=== PATIENT | female | born 1995 | race Caucasian/White ===

== ENCOUNTER 2020-10-21 10:55 | Emergency (ER) | payer OTHER ==
[2020-10-21 11:06] VITALS: BP 115/70; PULSE 129
[2020-10-21] MEDS ORDERED: Sodium Chloride 0.9% 1,000 ML IV ONE ×2 (11:21→13:01)
[2020-10-21] MEDS ORDERED: Sodium Chloride 0.9% 10 ML Syringe FLUSH PRN (11:21)
[2020-10-21] MEDS ORDERED: Ondansetron 4 MG/2 ML SDV IVPUSH ONE (11:21)
--- NOTE | 2020-10-21 11:33 | EDM.PDOC ---
ED HPI GENERAL MEDICAL PROBLEM - General Chief Complaint: Gastrointestinal Problem Stated Complaint: DIABETIC COMPLAINT Time Seen by Provider: 10/21/20 11:18 Source of Information: Reports: Patient, RN Notes Reviewed History Limitations: Reports: No Limitations - History of Present Illness INITIAL COMMENTS - FREE TEXT/NARRATIVE: Patient is a 25-year-old female who presents to the ER for the evaluation of her nausea and vomiting. Patient is a type I diabetic. She is also 7 weeks . She states that she woke up this morning around 3 or 4 AM, and developed copious vomiting, she states she cannot even keep fluids down. Patient notes that her blood sugars have been running in the 200s recently, and her blood sugar at the time of triage was 254. She states that ketones this morning comes on ointment with Dr. Farmer for the , and everything was well to that respect. She is a G2, P1, primary care provider is Dr. Morel. Further denies any sort of urinary discomfort, frequency or urgency. She notes she is not been around anyone else that is been sick lately, and she states that everyone in her household is feeling well. - Related Data Allergies Allergy/AdvReac Type Severity Reaction Status Date / Time No Known Allergies Allergy Verified 10/21/20 11:06 Home Meds: Home Meds Subcutaneous Insulin Pump [Insulin Pump] 0 unit SQ ASDIRECTED 08/03/14 [History] Pnv No.95/Ferrous Fum/Folic AC [ Caplet] 1 tab PO DAILY 01/21/19 [History] Past Medical History HEENT History: Reports: Allergic Rhinitis, Impaired Vision, Otitis Media Other HEENT History: wears eyeglasses. Genitourinary History: Reports: UTI, Recurrent HEAD GROWER History: Reports: : 2 Para: 1 Endocrine/Metabolic History: Reports: Diabetes, Type I, Other (See Below) Other Endocrine/Metabolic History: states was Dx'd at age 12. Insulin Pump Model and Cardiopulmonary Supervisor: dexcom Type of Insulin Used in Pump: omnipod Who Manages Your Pump: Patient (Self) - Past Surgical History HEENT Surgical History: Reports: Myringotomy w Tube(s) Social & Family History - Tobacco Use Tobacco Use Status *Q: Never Tobacco User Second Hand Smoke Exposure: No - Caffeine Use Caffeine Use: Reports: None - Recreational Drug Use Recreational Drug Use: No ED ROS GENERAL - Review of Systems Review Of Systems: Comprehensive ROS is negative, except as noted in HPI. ED EXAM, GI/ABD - Physical Exam Exam: See Below Exam Limited By: No Limitations General Appearance: Alert, WD/WN, No Apparent Distress Respiratory/Chest: No Respiratory Distress, Lungs Clear, Normal Breath Sounds, No Accessory Muscle Use, Chest Non-Tender Cardiovascular: Normal Peripheral Pulses, Regular Rate, Rhythm, No Edema GI/Abdominal Exam: Normal Bowel Sounds, Soft, Non-Tender, No Distention, No Mass Extremities: Normal Inspection, Normal Capillary Refill Neurological: Alert, Oriented, Normal Cognition, No Motor/Sensory Deficits Psychiatric: Normal Affect, Normal Mood Skin Exam: Warm, Dry, Intact, Normal Color, No Rash Course - Vital Signs Last Recorded V/S: Last Vital Signs Temp 99.3 F 10/21/20 11:03 Pulse 129 H 10/21/20 11:03 Resp 16 10/21/20 11:03 BP 115/70 10/21/20 11:03 Pulse Ox 97 10/21/20 11:03 - Orders/Labs/Meds Orders: Active Orders 24 hr Category Date Time Status Communication Order [RC] ASDIRECTED Care 10/21/20 12:19 Ordered Peripheral IV Care [RC] . DIRECTED Care 10/21/20 11:21 Ordered Sodium Chloride 0.9% [Saline Flush] Med 10/21/20 11:21 Active 10 ml FLUSH ASDIRECTED PRN Peripheral IV Insertion Adult [OM.PC] Routine Oth 10/21/20 11:21 Ordered Medication Orders Sodium Chloride (Sodium Chloride 0.9% 10 Ml Syringe) 10 ml FLUSH ASDIRECTED PRN PRN Reason: Keep Vein Open Last Admin: 10/21/20 11:40 Dose: 10 ml Documented by: JESICA Labs: Laboratory Tests 10/21/20 10/21/20 10/21/20 Range/Units 11:08 11:30 12:01 WBC 17.18 H (3.98-10.04) K/mm3 RBC 5.20 (3.98-5.22) M/mm3 Hgb 15.3 D (11.2-15.7) gm/dl Hct 44.5 (34.1-44.9) % MCV 85.6 (79.4-94.8) fl MCH 29.4 (25.6-32.2) pg MCHC 34.4 (32.2-35.5) g/dl RDW Std Deviation 39.0 (36.4-46.3) fL Plt Count 407 H D (182-369) K/mm3 MPV 8.5 L (9.4-12.3) fl Neut % (Auto) 93.9 H (34.0-71.1) % Lymph % (Auto) 2.7 L (19.3-51.7) % [place]ountain % (Auto) 2.8 L (4.7-12.5) % Eos % (Auto) 0 L (0.7-5.8) Baso % (Auto) 0.2 (0.1-1.2) % Neut # (Auto) 16.13 H (1.56-6.13) K/mm3 Lymph # (Auto) 0.47 L (1.18-3.74) K/mm3 Fountain # (Auto) 0.48 H (0.24-0.36) K/mm3 Eos # (Auto) 0.00 L (0.04-0.36) K/mm3 Baso # (Auto) 0.03 (0.01-0.08) K/mm3 Manual Slide Review Abnormal smear Sodium 138 (136-145) mEq/L Potassium 4.1 (3.5-5.1) mEq/L Chloride 102 (98-107) mEq/L Carbon Dioxide 23 (21-32) mEq/L Anion Gap 17.1 H (5-15) BUN 18 (7-18) mg/dL Creatinine 0.8 (0.55-1.02) mg/dL Est Cr Clr Drug Dosing 95.89 mL/min Estimated GFR (MDRD) > 60 (>60) mL/min BUN/Creatinine Ratio 22.5 H (14-18) Glucose 287 H (74-106) mg/dL POC Glucose 254 H (70-105) mg/dL Serum Osmolality 296 (280-300) mosm/kg Calcium 8.3 L (8.5-10.1) mg/dL Total Bilirubin 1.8 H (0.2-1.0) mg/dL AST 32 (15-37) U/L ALT 44 (14-59) U/L Alkaline Phosphatase 66 (46-116) U/L Total Protein 7.1 (6.4-8.2) g/dl Albumin 3.7 (3.4-5.0) g/dl Globulin 3.4 gm/dL Albumin/Globulin Ratio 1.1 (1-2) Urine Color (Yellow) Urine Appearance (Clear) Urine pH (5.0-8.0) Ur Specific [place] (1.005-1.030) Urine Protein (Negative) Urine Glucose (UA) (Negative) Urine Ketones (Negative) Urine Occult Blood (Negative) Urine Nitrite (Negative) Urine Bilirubin (Negative) Urine Urobilinogen (0.2-1.0) Ur Leukocyte Esterase (Negative) Urine RBC (0-5) /hpf Urine WBC (0-5) /hpf Ur Squamous Epith Cells (0-5) /hpf Urine Bacteria (FEW) /hpf Urine Mucus (FEW) /hpf Ketones (0.0-0.3) mM 10/21/20 10/21/20 Range/Units 12:01 13:57 WBC (3.98-10.04) K/mm3 RBC (3.98-5.22) M/mm3 Hgb (11.2-15.7) gm/dl Hct (34.1-44.9) % MCV (79.4-94.8) fl MCH (25.6-32.2) pg MCHC (32.2-35.5) g/dl RDW Std Deviation (36.4-46.3) fL Plt Count (182-369) K/mm3 MPV (9.4-12.3) fl Neut % (Auto) (34.0-71.1) % Lymph % (Auto) (19.3-51.7) % [place] % (Auto) (4.7-12.5) % Eos % (Auto) (0.7-5.8) Baso % (Auto) (0.1-1.2) % Neut # (Auto) (1.56-6.13) K/mm3 Lymph # (Auto) (1.18-3.74) K/mm3 Fountain # (Auto) (0.24-0.36) K/mm3 Eos # (Auto) (0.04-0.36) K/mm3 Baso # (Auto) (0.01-0.08) K/mm3 Manual Slide Review Sodium (136-145) mEq/L Potassium (3.5-5.1) mEq/L Chloride (98-107) mEq/L Carbon Dioxide (21-32) mEq/L Anion Gap (5-15) BUN (7-18) mg/dL Creatinine (0.55-1.02) mg/dL Est Cr Clr Drug Dosing mL/min Estimated GFR (MDRD) (>60) mL/min BUN/Creatinine Ratio (14-18) Glucose (74-106) mg/dL POC Glucose (70-105) mg/dL Serum Osmolality (280-300) mosm/kg Calcium (8.5-10.1) mg/dL Total Bilirubin (0.2-1.0) mg/dL AST (15-37) U/L ALT (14-59) U/L Alkaline Phosphatase (46-116) U/L Total Protein (6.4-8.2) g/dl Albumin (3.4-5.0) g/dl Globulin gm/dL Albumin/Globulin Ratio (1-2) Urine Color Yellow (Yellow) Urine Appearance Clear (Clear) Urine pH 5.5 (5.0-8.0) Ur Specific [place] 1.025 (1.005-1.030) Urine Protein Negative (Negative) Urine Glucose (UA) 2+ H (Negative) Urine Ketones 4+ H (Negative) Urine Occult Blood Trace-intact H (Negative) Urine Nitrite Negative (Negative) Urine Bilirubin Negative (Negative) Urine Urobilinogen 0.2 (0.2-1.0) Ur Leukocyte Esterase Negative (Negative) Urine RBC 5-10 H (0-5) /hpf Urine WBC 0-5 (0-5) /hpf Ur Squamous Epith Cells 0-5 (0-5) /hpf Urine Bacteria Few (FEW) /hpf Urine Mucus Few (FEW) /hpf Ketones 1.08 (0.0-0.3) mM Meds: Medications Generic Name Dose Route Start Last Admin Trade Name Freq PRN Reason Stop Dose Admin Sodium Chloride 10 ml 10/21/20 11:21 10/21/20 11:40 Sodium Chloride 0.9% 10 Ml Syringe FLUSH 10 ml ASDIRECTED PRN Administration Keep Vein Open Discontinued Medications Generic Name Dose Route Start Last Admin Trade Name Freq PRN Reason Stop Dose Admin Sodium Chloride 1,000 mls @ 999 mls/hr 10/21/20 11:21 10/21/20 11:40 Normal Saline IV 10/21/20 12:21 999 mls/hr ONETIME ONE Administration Sodium Chloride 1,000 mls @ 999 mls/hr 10/21/20 13:01 10/21/20 13:36 Normal Saline IV 10/21/20 14:01 999 mls/hr ONETIME ONE Administration Ondansetron HCl 4 mg 10/21/20 11:21 10/21/20 11:38 Ondansetron 4 Mg/2 Ml Sdv IVPUSH 10/21/20 11:22 4 mg ONETIME ONE Administration - Re-Assessments/Exams Free Text/Narrative Re-Assessment/Exam: 10/21/20 11:32 Patient presents to the ER for her nausea and vomiting in . We will go ahead and give her some IV fluids, some IV Zofran for initial management, take some baseline labs for further investigation. 10/21/20 12:18 Patient CBC has resulted, and her white count is elevated at 17.1, with 93% neutrophils, and over 10% bands noted on the auto differential. Have ordered a urinalysis for ongoing management. Metabolic panel and other labs are still pending. 10/21/20 13:17 Metabolic panel has come back, and is essentially unremarkable. Patient's blood sugar on the metabolic panel was 280. Her ketone level was 1.08, which is elevated by our lab standards, but in no means put her into ketoacidosis. Patient's blood sugar on her continuous glucose monitor was 271 when I went in to reassess her. I would feel more comfortable if she got 1 more bag of fluids before going home, and she seems to be okay with this. She notes that she was able to keep some fluids and Jell-O down without difficulty. This is good news. She states she was going to call her school vocational educator, tomorrow due to her blood sugars being steadily in the 200s for the last week. Patient again denies any sort of sick-like symptoms. 10/21/20 14:29 Urine has come back, and demonstrates no focal abnormalities. Patient has received her second bag of fluids, she reports still feeling well, she would like to be discharged home. At this point in time I cannot see any reason why she can go home with general recommendations and follow-up with her care providers tomorrow return to the ER if her symptoms worsen. Patient verbalized understanding. Departure - Departure Time of Disposition: 13:59 Disposition: Home, Self-Care 01 Condition: Good Clinical Impression: Nausea and vomiting during , Blood glucose elevated - Discharge Information *PRESCRIPTION DRUG MONITORING PROGRAM REVIEWED*: No *COPY OF PRESCRIPTION DRUG MONITORING REPORT IN PATIENT JOELLEN: No Instructions: Nausea and Vomiting, Adult, [id number] Referrals: Sammi Singleton MD [Primary Care Provider] - Forms: ED Department Discharge Additional Instructions: You have been evaluated in the ED for nausea/vomiting. You did receive some IV fluids in the ER along with IV nausea medications, this seemed to help relieve most your symptoms. Your blood sugars were down to an acceptable level on your continuous glucose monitor when you are discharged from this hospital. Over the next 24-48 hours please try to limit diet to clear liquids and advance as tolerated to a bland diet to alleviate symptoms of nausea/vomiting. Please use the Zofran every 8 hours as needed for nausea. You indicated you already had a prescription for this from Dr. Farmer. I would recommend that you take 1 dose in the morning, before you start to get sick, to make sure that you can keep yourself hydrated due to . Recommend you follow-up with your school vocational educator, regarding your elevated blood glucose levels throughout the last week. They might need to rethink your diabetic regimen for . Please return to the ED if your symptoms should change or worsen. Sepsis Event Note (ED) - Evaluation Sepsis Screening Result: No Definite Risk - Focused Exam Vital Signs: Vital Signs Temp Pulse Resp BP Pulse Ox 10/21/20 11:03 99.3 F 129 H 16 115/70 97 - My Orders Last 24 Hours: My Active Orders 10/21/20 11:21 Peripheral IV Care [RC] . DIRECTED Sodium Chloride 0.9% [Saline Flush] 10 ml FLUSH ASDIRECTED PRN Peripheral IV Insertion Adult [OM.PC] Routine 10/21/20 12:19 Communication Order [RC] ASDIRECTED - Assessment/Plan Last 24 Hours: My Active Orders 10/21/20 11:21 Peripheral IV Care [RC] . DIRECTED Sodium Chloride 0.9% [Saline Flush] 10 ml FLUSH ASDIRECTED PRN Peripheral IV Insertion Adult [OM.PC] Routine 10/21/20 12:19 Communication Order [RC] ASDIRECTED
== END 2020-10-21 14:56 | disposition home or self-care (01) ==
LOC: JD.ED 10:55
DX: O24.911 Unspecified diabetes mellitus in pregnancy, first trimester (principal); E10.65 Type 1 diabetes mellitus with hyperglycemia; Z3A.01 Less than 8 weeks gestation of pregnancy
CPT/HCPCS: 36415; 80053; 81001; 82009; 82962; 83930; 85025; 96361; 96374; 99284; J2405; J7030

== ENCOUNTER 2023-02-02 08:37 | Emergency (ER) | payer OTHER ==
[2023-02-02] MEDS ORDERED: Sodium Chloride 0.9% 10 ML Syringe FLUSH PRN (09:09)
[2023-02-02] MEDS ORDERED: Sodium Chloride 0.9% 1,000 ML IV SCH (09:15)
[2023-02-02 09:36] LABS: BASOPHILS ABSOLUTE AUTO 0.05 K/mm3 (0.01-0.08); BASOPHILS PERCENT AUTO 0.6 % (0.1-1.2); EOSINOPHILS ABSOLUTE AUTO 0.12 K/mm3 (0.04-0.36); EOSINOPHILS PERCENT AUTO 1.3 (0.7-5.8); HEMOGLOBIN 14.9 gm/dl (11.2-15.7); IMMATURE GRAN ABSOLUTE AUTO 0.03 K/mm3 (0.00-0.10); IMMATURE GRAN PERCENT AUTO 0.3 % (<=1.0); LYMPHOCYTES ABSOLUTE AUTO 1.45 K/mm3 (1.18-3.74); MEAN CORPUSCULAR HEMOGLOBIN 29.4 pg (25.6-32.2); MEAN CORPUSCULAR HGB CONC 34.7 g/dl (32.2-35.5); MEAN CORPUSCULAR VOLUME 84.8 fl (79.4-94.8); MEAN PLATELET VOLUME 8.7 fl (9.4-12.3); MONOCYTES ABSOLUTE AUTO 0.65 K/mm3 (0.24-0.36); MONOCYTES PERCENT AUTO 7.2 % (4.7-12.5); NEUTROPHILS ABSOLUTE AUTO 6.79 K/mm3 (1.56-6.13); NEUTROPHILS PERCENT AUTO 74.6 % (34.0-71.1); PLATELET COUNT,PLT 421 K/mm3 (182-369); RED BLOOD CELL COUNT 5.07 M/mm3 (3.98-5.22); WHITE BLOOD CELL COUNT,WBC 9.09 K/mm3 (3.98-10.04)
[2023-02-02 09:43] LABS: APPEARANCE,URINE SLT CLOUDY (Clear); BILIRUBIN,URINE NEGATIVE (Negative); COLOR,URINE YELLOW (Yellow); GLUCOSE,URINE 1+ (Negative); KETONES,URINE NEGATIVE (Negative); LEUKOCYTE ESTERASE,URINE 1+ (Negative); NITRITE,URINE NEGATIVE (Negative); OCCULT BLOOD,URINE NEGATIVE (Negative); PROTEIN,URINE NEGATIVE (Negative); UROBILINOGEN,URINE 0.2 (0.2-1.0)
[2023-02-02 09:56] LABS: ALBUMIN 3.9 g/dl (3.4-5.0); BILIRUBIN TOTAL 0.8 mg/dL (0.2-1.0); CALCIUM 9.2 mg/dL (8.5-10.1); CREATININE 0.8 mg/dL (0.55-1.02); EST CRCL DRUG DOSING (CG) 93.37 mL/min; PROTEIN TOTAL,TP 7.8 g/dl (6.4-8.2)
[2023-02-02 10:11] LABS: BACTERIA,URINE FEW /hpf (FEW); EPITHELIAL CELLS,URINE 0-5 /hpf (0-5); MUCUS,URINE RARE /hpf (FEW); RBC,URINE 0-5 /hpf (0-5)
[2023-02-02 11:11] LABS: CORONAVIRUS COVID-19 NAA NEGATIVE (NEGATIVE); INFLUENZA A NAA NEGATIVE (NEGATIVE); RESPIRATORY SYNCYTIAL VIR NAA NEGATIVE (NEGATIVE)
[2023-02-02 12:04] VITALS: BP 110/82; PULSE 89
== END 2023-02-02 11:43 | disposition home or self-care (01) ==
LOC: JD.ED 08:37
DX: J06.9 Acute upper respiratory infection, unspecified (principal); B97.89 Other viral agents as the cause of diseases classified elsewhere; E10.65 Type 1 diabetes mellitus with hyperglycemia; Z20.822 Contact with and (suspected) exposure to COVID-19
CPT/HCPCS: 0241U; 36415; 80053; 81001; 82009; 82800; 83930; 84703; 85025; 96360; 99284; J7030; 99283

== ENCOUNTER 2023-07-21 06:48 | Day surgery (SDC) | payer BC, OTHER ==
[~2023-07-21 06:48] MED LIST: Lactated Ringers 1,000 ML IV SCH; Sodium Chloride 0.9% 10 ML Syringe FLUSH PRN; Sodium Chloride 0.9% 10 ML Syringe FLUSH SCH
[2023-07-21] MEDS ORDERED: Bupivacaine 0.25% 10 ML SDV ONE (07:00)
[2023-07-21] MEDS ORDERED: EPINEPHrine 1 MG/ML SDV ONE (07:00)
[2023-07-21] MEDS ORDERED: Bupivacaine 0.5% 30 ML SDV ONE (07:00)
[2023-07-21 07:13] LABS: BASOPHILS ABSOLUTE AUTO 0.1 K/mm3 (0.0-0.2); BASOPHILS PERCENT AUTO 1.3 % (0.0-1.0); EOSINOPHILS ABSOLUTE AUTO 0.4 K/mm3 (0.0-0.4); EOSINOPHILS PERCENT AUTO 4.9 % (0.0-6.0); HEMATOCRIT 41.8 % (37.0-47.0); HEMOGLOBIN 14.3 gm/dl (12.0-16.0); IMMATURE GRAN ABSOLUTE AUTO 0.02 K/mm3 (0.00-0.05); IMMATURE GRAN PERCENT AUTO 0.3 % (0.0-0.4); LYMPHOCYTES PERCENT AUTO 27.6 % (24.0-44.0); MEAN CORPUSCULAR HEMOGLOBIN 29.4 pg (28.0-32.0); MEAN CORPUSCULAR HGB CONC 34.2 g/dl (32.0-36.0); MEAN CORPUSCULAR VOLUME 85.8 fl (83.0-99.0); MEAN PLATELET VOLUME 8.3 fl (9.4-12.3); MONOCYTES ABSOLUTE AUTO 0.6 K/mm3 (0.0-0.8); MONOCYTES PERCENT AUTO 7.8 % (0.0-8.0); NEUTROPHILS ABSOLUTE AUTO 4.2 K/mm3 (1.8-7.7); NEUTROPHILS PERCENT AUTO 58.1 % (41.0-71.0); PLATELET COUNT,PLT 369 K/mm3 (150-400); RED BLOOD CELL COUNT 4.87 M/mm3 (4.10-5.30); WHITE BLOOD CELL COUNT,WBC 7.15 K/mm3 (3.9-11.3)
[2023-07-21] MEDS ORDERED: Propofol 200 MG/20 ML SDV ONE ×2 (07:15→08:05)
[2023-07-21] MEDS ORDERED: Midazolam 1 MG/ML 2 ML SDV ONE (07:15)
[2023-07-21] MEDS ORDERED: fentaNYL 250 MCG/5 ML SDV ONE (07:15)
[2023-07-21] MEDS ORDERED: dexmedeTOMIDine HCl 200 MCG/2 ML SDV ONE (07:16)
[2023-07-21] MEDS ORDERED: Rocuronium 50 MG/5 ML Vial ONE (07:16)
[2023-07-21] MEDS ORDERED: Lidocaine 1% 5 ML VIAL ONE (07:16)
[2023-07-21] MEDS ORDERED: Dexamethasone 4 MG/ML 5 ML MDV ONE (07:16)
[2023-07-21] MEDS ORDERED: Ketorolac 30 MG/ML SDV ONE (07:16)
[2023-07-21] MEDS ORDERED: Ondansetron 4 MG/2 ML SDV ONE (07:16)
[2023-07-21] MEDS ORDERED: Phenylephrine 1% 10 MG/ML SDV ONE (07:16)
[2023-07-21 07:35] LABS: A/G RATIO 1.1 (1-2); ALBUMIN 3.8 g/dl (3.4-5.0); ANION GAP 12.8 (5-15); BILIRUBIN TOTAL 0.8 mg/dL (0.2-1.0); BUN/CREATININE RATIO 14.3 (14-18); CALCIUM 8.9 mg/dL (8.5-10.1); CREATININE 0.7 mg/dL (0.55-1.02); EST CRCL DRUG DOSING (CG) 106.7 mL/min; POTASSIUM,K 3.8 mEq/L (3.5-5.1); PROTEIN TOTAL,TP 7.4 g/dl (6.4-8.2)
[2023-07-21] MEDS ORDERED: Scopalamine 1mg/3day Transdermal Patch TOP ONE (07:35)
[2023-07-21] MEDS ORDERED: ceFAZolin 2 GM Vial ONE (07:46)
[2023-07-21] MEDS ORDERED: Neostigmine Methylsulfate 10 MG/10 ML MDV ONE (09:30)
[2023-07-21] MEDS ORDERED: Lactated Ringers 1,000 ML ONE (09:35)
[2023-07-21] MEDS ORDERED: fentaNYL 100 MCG/2 ML SDV IVPUSH PRN (10:31)
[2023-07-21] MEDS ORDERED: HYDROmorphone 0.5 MG/0.5 ML Syringe IVPUSH PRN (10:31)
[2023-07-21] MEDS ORDERED: Naloxone 0.4 MG/ML SDV IVPUSH PRN (10:31)
[2023-07-21] MEDS ORDERED: Acetaminophen/oxyCODONE 325-5 MG Tab PO PRN (10:36)
[2023-07-21 13:09] VITALS: BP 120/70; PULSE 90
[2023-07-21] MEDS ORDERED: Ondansetron 4 MG/2 ML SDV IVPUSH ONE (14:28)
[2023-07-21] MEDS ORDERED: Acetaminophen 325 MG Tab PO ONE (14:29)
== END 2023-07-21 15:30 | disposition home or self-care (01) ==
LOC: JD.SDS 06:48
PROVIDERS: ATTEND Obstetrics & Gynecology
DX: N72 Inflammatory disease of cervix uteri (principal); N94.6 Dysmenorrhea, unspecified; E10.9 Type 1 diabetes mellitus without complications; Z79.899 Other long term (current) drug therapy
CPT/HCPCS: 36415; 58552; 80053; 81025; 85025; 86850; 86900; 86901; A9270; J0171; J0665; J0690; J1100; J1170; J1885; J2250; J2405; J2704; J2710; J3010; J3490; J7120; J2371

== ENCOUNTER 2024-08-23 17:23 | Emergency (ER) | payer BC, OTHER ==
[2024-08-23 17:59] VITALS: BP 120/88; PULSE 79
[2024-08-23] MEDS: Alum Hydrox/Mag Hydrox/Simeth 30 ML, Lidocaine 2% 15 ML PO ONE (18:36)
[2024-08-23] MEDS: Famotidine 20 MG/2 ML SDV IVPUSH ONE (18:37)
== END 2024-08-23 19:24 | disposition home or self-care (01) ==
LOC: JD.ED 17:23
DX: K21.9 Gastro-esophageal reflux disease without esophagitis (principal); E10.9 Type 1 diabetes mellitus without complications; Z79.899 Other long term (current) drug therapy; Z79.4 Long term (current) use of insulin; Z90.710 Acquired absence of both cervix and uterus
CPT/HCPCS: 76705; 76705-26; 96374; 99284; 99284-25; A9270-GY